=== PATIENT | female | born 1995 | race Two or more races ===

== ENCOUNTER 2019-07-21 04:05 | Emergency (ER) | payer MEDICAID, OTHER ==
[~2019-07-21] VITALS: Ht 157.5 cm; Wt 49.9 kg
--- NOTE | 2019-07-21 04:28 | NUR ---
PT [id number]. SOB. [id number]. LAST HD ON SAT 07/18/19. GIVEN ALBUTEROL 5MG HHN BY EMS [facility] LAST SATURDAY. AAOX4. NOT IN RESP DISTRESS. PT CONNECTED TO STUDENT COUNSELOR AND POX.
[2019-07-21 04:31] LABS: BASOPHILS % (AUTO) 0.4 % (0.0-2.0); EOSINOPHILS % (AUTO) 1.7 % (0.0-6.0); HEMATOCRIT 36 % (33-45); HEMOGLOBIN 12.1 g/dL (11.5-14.8); LYMPHOCYTES # (AUTO) 2.4 /CMM (0.8-4.8); LYMPHOCYTES % (AUTO) 33.4 % (20.0-44.0); MEAN CORPUSCULAR HGB CONC 33 g/dl (31.0-36.0); MEAN CORPUSCULAR VOLUME 91 fL (82-100); MONOCYTES # (AUTO) 0.5 /CMM (0.1-1.30); MONOCYTES % (AUTO) 6.4 % (2.0-12.0); NEUTROPHILS # (AUTO) 4.2 /CMM (1.8-8.9); NEUTROPHILS % (AUTO) 58.1 % (43.0-81.0); PLATELET COUNT (AUTO) 298 /CMM (150-450); RED BLOOD CELL COUNT(AUTO) 4.03 MIL/uL (4.0-5.2); WHITE BLOOD COUNT (AUTO) 7.2 K/uL (4.3-11.0)
[2019-07-21 04:39] LABS: CALCIUM, SERUM 8.6 mg/dL (8.5-10.1); CARBON DIOXIDE 28 mmol/L (21-32); CHLORIDE 103 mmol/L (98-107); CREATININE 0.7 mg/dL (0.6-1.3); GLUCOSE 109 mg/dL (74-106); POTASSIUM 3.6 mmol/L (3.5-5.1); SODIUM SERUM 139 mmol/L (136-145); UREA NITROGEN, BLOOD 14 mg/dL (7-18)
[2019-07-21 04:44] LABS: ACETAMINOPHEN 0 ug/ml (10-30); ALANINE AMINOTRANSFERASE 34 U/L (12-78); ALBUMIN 3.4 g/dL (3.4-5.0); ALCOHOL, BLOOD < 3 mg/dL (0-0); ALKALINE PHOSPHATASE 69 U/L (46-116); ASPARTATE AMINOTRANSFERASE 25 U/L (15-37); BILIRUBIN,TOTAL 0.1 mg/dL (0.2-1.0); TOTAL PROTEIN, SERUM 6.4 g/dL (6.4-8.2)
[2019-07-21 04:45] LABS: SALICYLATE 1.2 mg/dL (2.8-20.0)
--- NOTE | 2019-07-21 05:15 | NUR ---
ASKED PT IF SHE CAN GIVE URINE SAMPLE. PT REFUSED
[2019-07-21] MEDS ORDERED: IV NS 0.9% 1,000 ML BAG IV ONE ×3 (05:30→16:00)
--- NOTE | 2019-07-21 06:19 | NUR ---
Patient is resting comfortably in bed with eyes closed. Easily aroused.
--- NOTE | 2019-07-21 06:25 | NUR ---
PT IS SITLL REFUSING TO GIVE URINE SAMPLE
--- NOTE | 2019-07-21 06:55 | NUR ---
PT REFUSED TO GIVE URINE SAMPLE MADE AWARE
--- NOTE | 2019-07-21 06:56 | NUR ---
Patient is resting comfortably in bed with eyes closed. Easily aroused.
--- NOTE | 2019-07-21 07:34 | NUR ---
called poison control segundo observe 6 hours. is ekg normal? drowsiness may be presistant for 24 hours.
--- NOTE | 2019-07-21 07:56 | NUR ---
Patient pulled out IV catheter, covered with dry dressing. Patient assisted to restroom, unsteady gait.
[2019-07-21 08:22] LABS: APPEARANCE,URINE Clear (CLEAR); BILIRUBIN,URINE Negative (NEGATIVE); BLOOD, URINE Negative Ery/uL (NEGATIVE); COLOR,URINE Yellow (YELLOW); KETONES,URINE Negative (NEGATIVE); LEUKOCYTE ESTERASE ,URINE Negative (NEGATIVE); NITRITE, URINE Negative (NEGATIVE); PROTEIN,URINE Negative (NEGATIVE); UGLUCOSE Negative (NEGATIVE); UROBILINOGEN,URINE 0.2 EU/dL (0.2)
--- NOTE | 2019-07-21 09:30 | NUR ---
PATIENT ASLEEP, AROUSABLE, RESTING, NO DISTRESS NOTED, VITALS STABLE.
--- NOTE | 2019-07-21 10:27 | NUR ---
POISON CONTROL CALLED AND GAVE UPDATES
--- NOTE | 2019-07-21 10:30 | NUR ---
PER PATIENT CONTROL, RECEOMMENDS OBSERVATION FROM 12-16 HOURS FROM ADMISSION, HOWEVER, ITS MD'S DISCRETION TO OBSERVE HER.
--- NOTE | 2019-07-21 12:53 | NUR ---
DIRECTOR FINANCIAL SERVICES TRISTEN AT BEDSIDE, ATTEMPTED TO EVALUATE PATIENT, BUT PATIENT IS STILL DROWSY, UNABLE TO ANSWER WITH COMPLETE SENTENCES. DR. ROLLINS MADE AWARE, WILL RE-EVALUATE LATER.
--- NOTE | 2019-07-21 12:59 | NUR ---
OCEAN FREIGHT AGENT attempted to evaluate pt, however pt is still drowsy and unable to provide meaningful information at this time. OCEAN FREIGHT AGENT to attempt at a later time.
--- NOTE | 2019-07-21 14:00 | NUR ---
PATIENT STILL INCOHERENT, WOULD TALK BUT EVENTUALLY WOULD DOZE OFF.
--- NOTE | 2019-07-21 14:19 | NUR ---
CALLED REPAIRER GENERAL ART ETA 1 HOUR
--- NOTE | 2019-07-21 14:51 | NUR ---
PATIENT SEEN AND EVALUATED BY SOFIA TAFFY PULLER, PATIENT INCOHERENT.
--- NOTE | 2019-07-21 15:40 | NUR ---
paged vinay santos rolling down machine operator for admission
--- NOTE | 2019-07-21 15:45 | NUR ---
CALLED NURSING SUP FOR BED
--- NOTE | 2019-07-21 15:45 | NUR ---
PT AMBULATED TO THE BATHROOM WITH FRANCISCO VINES.
--- NOTE | 2019-07-21 15:47 | NUR ---
MED RECON NURSE UNABLE TO OBTAIN HOME MEDICATIONS DUE TO PT INCOHERENT
--- NOTE | 2019-07-21 15:56 | NUR ---
GAVE MOVESHEET AND CLINICALS TO ADMITTING
--- NOTE | 2019-07-21 16:14 | NUR ---
Rakesh HOUSTON AT BEDSIDE FOR EVAL. PATIENT'S BOYFRIEND CAME AND PRESENT AT BEDSIDE.
--- NOTE | 2019-07-21 16:18 | NUR ---
Per MD Walton, pt will be admitted to the medical floor for observation. MD Walton is bedside with the pt. HUMAN RELATIONS TEACHER met with pt's boyfriend Keven Virgen . Per Keven, pt has a psychiatric diagnosis of Bipolar II and takes Seroquel. Pt was hospitalized at [facility] in 2016 for an overdose. Pt resides with her boyfriend at [address] [place] [address], [address] in [facility]. Pt is estranged from her family per Keven. Pt sees Dr Gerardo, psychiatrist every other week. HUMAN RELATIONS TEACHER to assess the pt tomorrow.
[2019-07-21 16:35] LABS: ABG BASE EXCESS -2.8 mmol/L; ABG OXYGEN SATURATION 96.6 % (92.0-98.5); ABG PCO2 40.8 mmHg (35.0-45.0); ABG PH 7.359 (7.350-7.450); ABG PO2 99.6 mmHg (75.0-100.0); AaDO2 1.3 mmHg; COHb 0.3 % (0.5-1.5); MetHb 0.7 % (0.0-1.5); O2Hb 95.6 % (94.0-97.0); SITE, ABG Right Radial; VENT MODE, BG ROOM AIR
[2019-07-21] MEDS ORDERED: IV NS 0.9% 1,000 ML IV PRN (17:04)
[2019-07-21] MEDS ORDERED: AMPH15TA2 PO (17:24)
[2019-07-21] MEDS ORDERED: QUET50TA15 PO (17:24)
[2019-07-21] MEDS ORDERED: LAMO200T2 PO (17:24)
--- NOTE | 2019-07-21 17:25 | NUR ---
med recon nurse: notes pt more awake and alert now, able to remember her medications. updated home meds lists.
--- NOTE | 2019-07-21 17:27 | NUR ---
CALLED SR COMMUNITY MANAGER BRADLEY RUELAS 1 HOUR
[2019-07-21] MEDS ORDERED: ACETAMINOPHEN 325 MG TABLET PO PRN (17:30)
[2019-07-21] MEDS ORDERED: ONDANSETRON HCL/PF 4 MG/2 ML VIAL IVP PRN (17:30)
[2019-07-21] MEDS ORDERED: MAG HYDROX/AL HYDROX/SIMETH 30 ML UDC PO PRN (17:30)
[2019-07-21] MEDS ORDERED: MAGNESIUM HYDROXIDE 30 ML UDC PO PRN (17:30)
[2019-07-21] MEDS ORDERED: Z GUARD REMEDY 2 OZ OINT TP PRN (17:30)
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
--- NOTE | 2019-07-21 17:35 | NUR ---
PATIENT'S BOYFRIEND LEFT.
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
--- NOTE | 2019-07-21 17:48 | NUR ---
LUKAS HOUSTON ORDER ENTRY SPECIALIST AT BEDSIDE TALKING TO PATIENT.
--- NOTE | 2019-07-21 18:55 | NUR ---
patient evluated by gigi, awaiting boyfriend to pick her up
--- NOTE | 2019-07-21 18:58 | NUR ---
RESTRAINTS REMOVED. IV removed. Catheter intact and site benign. Pressure and 4x4 applied to site. No bleeding noted.
--- NOTE | 2019-07-21 19:06 | NUR ---
BOYFRIEND VIRAJ CAME TO VEHICLE BODY BUILDER PATIENT, A/OX4, AMBULATORY WITH STEADY GAIT. PATIENT IS MEDICALLY AND PSYCHIATRIC CLEARED. Patient discharged to home in stable condition. Written and verbal after care instructions given. Patient verbalizes understanding of instruction.
[2019-07-21 19:07] VITALS: BP 100/65
[2019-07-22] MEDS ORDERED: PANTOPRAZOLE 40 MG VIAL IV SCH (09:00)
== END 2019-07-21 19:07 | disposition home or self-care (01) ==
LOC: ER 04:06 → UNDOADMIN 16:56 → TELE 16:56
DX: T43.592A Poisoning by other antipsychotics and neuroleptics, intentional self-harm, initial encounter (principal); F31.9 Bipolar disorder, unspecified; R41.82 Altered mental status, unspecified; R00.0 Tachycardia, unspecified; Y92.89 Other specified places as the place of occurrence of the external cause
CPT/HCPCS: 36415; 36600; 80048; 80076; 80305; 80307; 80329; 81001; 84702; 84703; 85025; 87081; 93005 ×2; 96360; 96361; 99285; G0480; J7030; 81000-TC